=== PATIENT | male | born 1965 | race African-American/Black ===

== ENCOUNTER 2019-01-31 20:25 | Emergency (ER) | payer BC, MEDICAID ==
[~2019-01-31] VITALS: Ht 167.6 cm; Wt 81.0 kg
[~2019-01-31 20:25] MED LIST: AMLO5TAB4 PO
[2019-02-01] MEDS ORDERED: IBUPROFEN 800MG TABLET PO ONE (02:15)
[2019-02-01] MEDS ORDERED: SULFAMETHOXAZOLE/TRIMETHOPRIM 800/160MG TABLET PO ONE (02:15)
[2019-02-01 02:20] VITALS: BP 154/98
== END 2019-02-01 02:21 | disposition home or self-care (01) ==
LOC: ER 20:25
DX: S30.860A Insect bite (nonvenomous) of lower back and pelvis, initial encounter (principal); L03.312 Cellulitis of back [any part except buttock and flank]; E11.9 Type 2 diabetes mellitus without complications; I10 Essential (primary) hypertension; Z79.899 Other long term (current) drug therapy; W57.XXXA Bitten or stung by nonvenomous insect and other nonvenomous arthropods, initial encounter; Y93.89 Activity, other specified; Y92.89 Other specified places as the place of occurrence of the external cause; Y99.8 Other external cause status
CPT/HCPCS: 99283